=== PATIENT | female | born 1995 | race Two or more races ===

== ENCOUNTER 2022-06-01 03:48 | Emergency (ER) | payer MEDICAID ==
[~2022-06-01] VITALS: Ht 152.4 cm; Wt 58.2 kg
[2022-06-01 04:18] VITALS: BP 125/75
== END 2022-06-01 05:01 | disposition home or self-care (01) ==
LOC: EMS 03:51
DX: F41.9 Anxiety disorder, unspecified (principal); F43.9 Reaction to severe stress, unspecified
CPT/HCPCS: 93005; 99283; 99284

== ENCOUNTER 2022-09-03 17:57 | Emergency (ER) | payer SELFPAY ==
[~2022-09-03] VITALS: Ht 154.9 cm; Wt 55.5 kg
[2022-09-03] MEDS ORDERED: ACETAMINOPHEN 500 MG TABLET PO ONE (18:30)
[2022-09-03 20:01] VITALS: BP 113/60
[2022-09-03] MEDS ORDERED: IBUP-1554 PO (20:04)
[2022-09-03] MEDS ORDERED: ACET-66 PO (20:04)
== END 2022-09-03 20:38 | disposition home or self-care (01) ==
LOC: EMS 17:57
DX: S00.83XA Contusion of other part of head, initial encounter (principal); S00.03XA Contusion of scalp, initial encounter; S10.93XA Contusion of unspecified part of neck, initial encounter; X58.XXXA Exposure to other specified factors, initial encounter; Y93.89 Activity, other specified; Y92.89 Other specified places as the place of occurrence of the external cause; Y99.8 Other external cause status
CPT/HCPCS: 70450; 70486; 99284

== ENCOUNTER 2025-01-16 16:29 | Emergency (ER) | payer MEDICAID ==
[~2025-01-16] VITALS: Ht 157.5 cm; Wt 65.0 kg
[~2025-01-16 16:29] MED LIST: ACET-66 PO; IBUP-1554 PO
[2025-01-16 16:36] VITALS: TEMP 98.4
[2025-01-16 16:54] LABS: PLATELET COUNT (AUTO) 276 K/uL (150-450); RED BLOOD CELL COUNT(AUTO) 4.25 MIL/uL (4.00-5.20); RED CELL DISTRIBUTION WIDTH 13.1 % (11.5-14.5); WHITE BLOOD COUNT (AUTO) 6.6 K/uL (4.5-11.0)
[2025-01-16 17:03] LABS: APPEARANCE,URINE CLEAR (CLEAR); GLUCOSE, URINE (UA) NEGATIVE (NEGATIVE); LEUKOCYTE ESTERASE ,URINE NEGATIVE (NEGATIVE); NITRATE,URINE NEGATIVE (NEGATIVE); OCCULT BLOOD,URINE NEGATIVE (NEGATIVE); SPECIFIC GRAVITIY, URINE 1.015 (1.003-1.030)
[2025-01-16 17:04] LABS: CALCIUM, TOTAL 9.1 mg/dL (8.8-10.5); CREATININE 0.91 mg/dL (0.60-1.30); GLOMERULAR FILTR. RATE CALC > 60 mL/min (>60); GLUCOSE,RANDOM 103 mg/dL (70-110); SODIUM SERUM 137 mmol/L (136-145); UREA NITROGEN, BLOOD 15 mg/dL (7-18)
[2025-01-16 17:15] LABS: TROPONIN I-HIGH SENSITIVITY 5 ng/L (<51)
[2025-01-16 21:10] VITALS: BP 119/64; PULSE 65; RESP 18; O2SAT 100
== END 2025-01-16 23:28 | disposition left against medical advice (07) ==
LOC: EMS 16:29
DX: R42 Dizziness and giddiness (principal); Z53.21 Procedure and treatment not carried out due to patient leaving prior to being seen by health care provider
CPT/HCPCS: 80048; 81003; 84484; 84702; 85025; 93005